=== PATIENT | male | born 1960 | race Caucasian/White ===

== ENCOUNTER 2022-03-29 07:44 | Day surgery (SDC) | payer BC ==
[~2022-03-29 07:44] MED LIST: Lactated Ringers 1,000 ML IV SCH
[2022-03-29] MEDS ORDERED: Lidocaine 2% 5 ML SDV ONE (08:04)
[2022-03-29] MEDS ORDERED: Propofol 200 MG/20 ML SDV ONE (08:05)
[2022-03-29] MEDS ORDERED: fentaNYL 100 MCG/2 ML SDV ONE (08:05)
[2022-03-29] MEDS ORDERED: Lactated Ringers 1,000 ML IV SCH (09:45)
== END 2022-03-29 10:25 | disposition home or self-care (01) ==
LOC: MW.SDS 07:44
PROVIDERS: ATTEND Surgery
DX: Z12.11 Encounter for screening for malignant neoplasm of colon (principal); D12.2 Benign neoplasm of ascending colon; K57.30 Diverticulosis of large intestine without perforation or abscess without bleeding; I12.9 Hypertensive chronic kidney disease with stage 1 through stage 4 chronic kidney disease, or unspecified chronic kidney disease; N18.30 Chronic kidney disease, stage 3 unspecified; E66.9 Obesity, unspecified; E78.00 Pure hypercholesterolemia, unspecified; Z86.010 Personal history of colon polyps; Z79.899 Other long term (current) drug therapy; Z98.890 Other specified postprocedural states; Z68.36 Body mass index [BMI] 36.0-36.9, adult; Z96.652 Presence of left artificial knee joint; Z96.641 Presence of right artificial hip joint; Z87.891 Personal history of nicotine dependence
CPT/HCPCS: 45380; J2704; J3010; J7120